=== PATIENT | male | born 1985 | race Caucasian/White ===

== ENCOUNTER 2018-08-20 12:07 | Emergency (ER) | payer SELFPAY ==
[~2018-08-20] VITALS: Wt 60.0 kg
[~2018-08-20 12:07] MED LIST: OMEP20CA9 PO
[2018-08-20] MEDS ORDERED: HYDROCODONE/APAP (5/325) TAB PO ONE (13:00)
--- NOTE | 2018-08-20 13:42 | ERD ---
ER Documentation Chief Complaint Chief Complaint CHEST WALL PAIN AND HEADACHE FOR THE PAST 3 DAYS. NON TRAUMATIC HPI 33-year-old male with past medical history of high cholesterol presenting with complaints of intermittent chest pressure for the past 3 days. Pain is worse with exertion. He is also noticed some shortness of breath. He reports radiation to his left arm. He denies any radiation of the jaw. He denies being anxious. He denies having similar symptoms in the past. He took aspirin at home with some relief. He denies all other symptoms at this time. ROS All systems reviewed and are negative except as per history of present illness. Medications Home Meds Active Scripts Naproxen* (Naprosyn*) 500 Mg Tablet, 500 MG PO BID PRN for PAIN AND/OR INFLAMMATION, #30 TAB Prov:SALTY MUÑIZ PA-C 08/20/18 Omeprazole* (Prilosec*) 20 Mg Capsule.dr, 20 MG PO DAILY for 30 Days, CAP Prov:MOIZ OSHEA MD 06/10/15 Allergies Allergies: Coded Allergies: No Known Allergy (Unverified , 01/20/13) PMhx/Soc Medical and Surgical Hx: pt denies Medical Hx, pt denies Surgical Hx Hx Miscellaneous Medical Probl: Yes (ANXIETY) Hx Alcohol Use: No Hx Substance Use: No Hx Tobacco Use: No FmHx Family History: No diabetes Physical Exam Vitals Vital Signs Date Temp Pulse Resp B/P (MAP) Pulse Ox O2 O2 Flow FiO2 Time Delivery Rate 08/20/18 78 18 132/78 Room Air 14:27 (96) 08/20/18 97.1 90 18 133/78 98 12:10 (96) Physical Exam Const: No acute distress Head: Atraumatic Eyes: Normal Conjunctiva ENT: Normal External Ears, Nose and Mouth. Neck: Full range of motion. No meningismus. Resp: Clear to auscultation bilaterally Cardio: Regular rate and rhythm, no murmurs. Reproducible left chest wall tenderness on palpation. Skin: No petechiae or rashes Ext: No cyanosis, or edema Neur: Awake and alert Psych: Normal Mood and Affect Result Diagram: 08/20/18 1259 08/20/18 1259 Results 24 hrs Laboratory Tests Test 08/20/18 12:59 White Blood Count 6.9 10^3/ul Red Blood Count 4.97 10^6/ul Hemoglobin 13.1 g/dl Hematocrit 39.9 % Mean Corpuscular Volume 80.3 fl Mean Corpuscular Hemoglobin 26.4 pg Mean Corpuscular Hemoglobin Concent 32.8 g/dl Red Cell Distribution Width 14.0 % Platelet Count 250 10^3/UL Mean Platelet Volume 10.3 fl Immature Granulocytes % 0.300 % Neutrophils % 62.3 % Lymphocytes % 25.5 % Monocytes % 9.5 % Eosinophils % 1.7 % Basophils % 0.7 % Nucleated Red Blood Cells % 0.0 /100WBC Immature Granulocytes # 0.020 10^3/ul Neutrophils # 4.3 10^3/ul Lymphocytes # 1.8 10^3/ul Monocytes # 0.7 10^3/ul Eosinophils # 0.1 10^3/ul Basophils # 0.1 10^3/ul Nucleated Red Blood Cells # 0.0 10^3/ul D-Dimer 429.29 ng/ml D-Dimer Comment Sodium Level 141 mmol/L Potassium Level 4.3 mmol/L Chloride Level 105 mmol/L Carbon Dioxide Level 27 mmol/L Anion Gap 9 Blood Urea Nitrogen 15 mg/dl Creatinine 0.62 mg/dl Est Glomerular Filtrat Rate mL/min > 60 mL/min Glucose Level 96 mg/dl Calcium Level 9.8 mg/dl Troponin I < 0.012 ng/ml B-Type Natriuretic Peptide 46 PG/ML Current Medications Medications Dose Sig/Melvin Start Time Status Last (Trade) Ordered Route PRN Stop Time Admin Dose Reason Admin 1 tab ONCE ONCE 08/20/18 DC 08/20/18 Acetaminophen PO 13:00 08/20/18 13:04 / 13:02 Hydrocodone Bitart ([place] (5/325)) [place] [id number] Radiology Main Line: [phone] DIAGNOSTIC IMAGING REPORT Patient: NIKOLAS MALDONADO : 1985 Age: 33 Sex: M MR #: [id number] DOS: 08/20/18 1252 Ordering MD: SALTY MUÑIZ PA-C Location: [facility] Room/Bed: PROCEDURE: XR Chest. CLINICAL INDICATION: Chest pain TECHNIQUE: Single frontal radiograph of the chest. COMPARISON: No prior FINDINGS: The lungs are clear. No pleural effusion. No pneumothorax. The cardiomediastinal silhouette is unremarkable. IMPRESSION: No acute air space infiltrates. RPTAT: AADD .Salty Quintana MD, Date Time Electronically viewed and signed by .Salty Quintana MD, on 08/20/2018 13:14 .B/ CC: SALTY MUÑIZ PA-C [phone] Procedures/MDM 33-year-old male presents to the emergency department complaining of left-sided chest pressure. The patient presents with chest pain and I considered pulmonary embolism, aortic dissection, pneumothorax among other diagnoses. Troponin was within normal limits. D-dimer was within normal limits. Symptoms likely secondary to acute costochondritis. I doubt life-threatening etiology. Shared decision making occurred with patient and the decision has been made to dis charge the patient for outpatient evaluation and functional study within 72 hours. EKG: Interpreted by ED physician. Rate/Rhythm: Normal Sinus Rhythm with a rate of 92 bpm. QRS, ST, T-waves: No changes consistent w/ acute ischemia Impression: No evidence of ischemia or arrhythmia Departure Diagnosis: Primary Impression: Chest wall pain Condition: Fair Patient Instructions: Chest Wall Pain, Costochondritis Additional Instructions: Follow up with your PCP within the next 1-3 days for a repeat evaluation. If you require a referral to a specialist, your Primary Care Provider may be able to provide this for you. In most patient cases, a referral is not required. If you have further questions regarding this matter, please ask your Primary Care Provider. Return the the emergency department immediately if symptoms worsen or change. If you have any questions regarding medications, ask your pharmacist or us before you leave. If any adverse reactions, occur while taking your medications, discontinue the treatment and return to the emergency department immediately. If any new or worsening symptoms, uncontrolled fevers, or other unexplained symptoms occur, return to the emergency department immediately. Take your medications as directed, and complete the entire course of treatment. SALTY MUÑIZ PA-C Aug 20, 2018 13:42
[2018-08-20] MEDS ORDERED: NAPR-985 PO (14:23)
[2018-08-20 14:27] VITALS: BP 132/78; PULSE 78; RESP 18
== END 2018-08-20 14:30 | disposition home or self-care (01) ==
LOC: FTE 12:07
DX: R07.89 Other chest pain (principal)
CPT/HCPCS: 36415; 71045; 80048; 83880; 84484; 85025; 85378; 93005